=== PATIENT | female | born 1960 | race Caucasian/White ===

== ENCOUNTER → 2017-09-27 | Outpatient (CLI) | payer BC ==
--- NOTE | 2017-10-01 08:19 | MM ---
Reason for exam: screening (asymptomatic). Last mammogram was performed 5 years and 2 months ago. History: Patient is postmenopausal. Physical Findings: A clinical breast exam by your physician is recommended on an annual basis and results should be correlated with mammographic findings. MG Screening Mammo w CAD Bilateral CC and MLO view(s) were taken. Prior study comparison: July 19, 2012, bilateral digital screening mammo w/CAD. The breast tissue is heterogeneously dense. This may lower the sensitivity of mammography. New increased nodule inferior left breast. ASSESSMENT: Incomplete: need additional imaging evaluation, BI-RAD 0 RECOMMENDATION: Special view mammogram of the left breast. If lesion persists on supplemental views, image directed ultrasound is recommended. [facility] will attempt to contact patient to return for supplemental views and ultrasound if indicated.
== END | disposition home or self-care (01) ==
LOC: RADMAMWWP 15:18
PROVIDERS: ATTEND Pediatrics
DX: Z12.31 Encounter for screening mammogram for malignant neoplasm of breast (principal)
CPT/HCPCS: 77067

== ENCOUNTER → 2017-10-14 | Outpatient (CLI) | payer BC ==
--- NOTE | 2017-10-15 07:54 | MM ---
Reason for exam: additional evaluation requested from abnormal screening. Last mammogram was performed 1 month ago. History: Patient is postmenopausal. Benign excisional biopsy of the right breast, 1991. Physical Findings: Nurse did not find any significant physical abnormalities on exam. MG 3D Work Up W/Cad LT Spot compression CC, MLO, and LM view(s) were taken of the left breast. Prior study comparison: September 27, 2017, bilateral MG screening mammo w CAD. July 19, 2012, bilateral digital screening mammo w/CAD. The breast tissue is heterogeneously dense. This may lower the sensitivity of mammography. Finding: There is a 5 mm circumscribed round mass in the lower quadrant, anterior position of the left breast, persists on additional views. These results were verbally communicated with the patient and result sheet given to the patient on 10/14/17. ASSESSMENT: Incomplete: need additional imaging evaluation, BI-RAD 0 RECOMMENDATION: Ultrasound of the left breast.
--- NOTE | 2017-10-15 07:55 | USB ---
Reason for exam: additional evaluation requested from abnormal screening. History: Patient is postmenopausal. Benign excisional biopsy of the right breast, 1991. US Breast Workup Limited LT Left breast ultrasound demonstrates a 0.5 x 0.3 x 0.5cm simple cyst at 6 o'clock. These results were verbally communicated with the patient and result sheet given to the patient on 10/14/17. ASSESSMENT: Benign, BI-RAD 2 RECOMMENDATION: Return to routine screening mammogram schedule for both breasts.
== END | disposition home or self-care (01) ==
LOC: RADMAMWWP 14:31
PROVIDERS: ATTEND Pediatrics
DX: Z12.31 Encounter for screening mammogram for malignant neoplasm of breast (principal); R92.8 Other abnormal and inconclusive findings on diagnostic imaging of breast; R92.2 Inconclusive mammogram
CPT/HCPCS: 77065; 76642; G0279

== ENCOUNTER → 2018-05-13 | Outpatient (CLI) | payer BC ==
--- NOTE | 2018-05-14 11:02 | USB ---
Reason for exam: additional evaluation requested from abnormal screening. History: Patient is postmenopausal. Benign excisional biopsy of the right breast, 1991. Physical Findings: Nurse did not find any significant physical abnormalities on exam. US Breast LT Left complete breast ultrasound includes all four quadrants, the retroareolar region and axilla. Finding demonstrates a 0.5 x 0.3 x 0.6cm cystic lesion at 6 o'clock and a axillary node. These results were verbally communicated with the patient and result sheet given to the patient on 05/13/18. ASSESSMENT: Benign, BI-RAD 2 RECOMMENDATION: Return to routine screening mammogram schedule for both breasts. Back on schedule. Manage patient on a clinical basis.
== END | disposition home or self-care (01) ==
LOC: RADUSWWP 15:36
PROVIDERS: ATTEND Nurse Practitioner Family
DX: N63.20 Unspecified lump in the left breast, unspecified quadrant (principal)

== ENCOUNTER → 2019-03-27 | Outpatient (CLI) | payer BC ==
--- NOTE | 2019-03-30 08:48 | MM ---
Reason for exam: screening (asymptomatic). Last mammogram was performed 1 year and 5 months ago. History: Patient is postmenopausal. Benign excisional biopsy of the right breast, 1991. Physical Findings: A clinical breast exam by your physician is recommended on an annual basis and results should be correlated with mammographic findings. MG Screening Mammo w CAD Bilateral CC and MLO view(s) were taken. Prior study comparison: October 14, 2017, left breast MG 3d work up w/cad LT. September 27, 2017, bilateral MG screening mammo w CAD. The breast tissue is heterogeneously dense. This may lower the sensitivity of mammography. There is chronic nodularity bilaterally. No significant changes when compared with prior studies. ASSESSMENT: Benign, BI-RAD 2 RECOMMENDATION: Routine screening mammogram of both breasts in 1 year.
== END | disposition home or self-care (01) ==
LOC: RADMAMWWP 16:06
PROVIDERS: ATTEND Pediatrics
DX: Z12.31 Encounter for screening mammogram for malignant neoplasm of breast (principal)
CPT/HCPCS: 77067

== ENCOUNTER → 2021-10-12 | Outpatient (CLI) | payer BC ==
--- NOTE | 2021-10-13 11:40 | MM ---
Reason for exam: screening (asymptomatic). Last mammogram was performed 2 years and 6 months ago. History: Patient is postmenopausal. Benign excisional biopsy of the right breast, 1991. Physical Findings: A clinical breast exam by your physician is recommended on an annual basis and results should be correlated with mammographic findings. MG Screening Mammo w CAD Bilateral CC and MLO view(s) were taken. Prior study comparison: March 27, 2019, bilateral MG screening mammo w CAD. October 14, 2017, left breast MG 3d work up w/cad LT. The breast tissue is heterogeneously dense. This may lower the sensitivity of mammography. Finding: There is a typically benign, new 4 mm circumscribed oval mass located 4 cm from the nipple in the lower inner quadrant, middle position of the right breast. There is a chronic nodularity bilaterally. New finding since March 27, 2019 and October 14, 2017. ASSESSMENT: Incomplete: need additional imaging evaluation, BI-RAD 0 RECOMMENDATION: Special view mammogram of the right breast. If lesion persists on supplemental views, image directed ultrasound is recommended. [facility] will attempt to contact patient to return for supplemental views and ultrasound if indicated.
== END | disposition home or self-care (01) ==
LOC: RADMAMWWP 12:56
PROVIDERS: ATTEND Pediatrics
DX: Z12.31 Encounter for screening mammogram for malignant neoplasm of breast (principal)
CPT/HCPCS: 77067

== ENCOUNTER → 2021-10-19 | Outpatient (CLI) | payer BC ==
--- NOTE | 2021-10-19 13:32 | MM ---
Reason for exam: additional evaluation requested from abnormal screening. Last mammogram was performed less than 1 month ago. History: Patient is postmenopausal. Benign excisional biopsy of the right breast, 1991. Physical Findings: Nurse Summary: 0.5cm nodule in the right breast at 1 o'clock (nurse ms). MG 3D Work Up W/Cad RT Spot compression CC, spot compression LM, and LM view(s) were taken of the right breast. Prior study comparison: October 12, 2021, bilateral MG screening mammo w CAD. March 27, 2019, bilateral MG screening mammo w CAD. The breast tissue is heterogeneously dense. This may lower the sensitivity of mammography. Central distortion becomes much more apparent on spot 3D CC. Likely excisonal scar. Low density nodularity lower inner quadrant becomes less defined and not seen on 3D lateral. These results were verbally communicated with the patient and result sheet given to the patient on 10/19/21. ASSESSMENT: Incomplete: need additional imaging evaluation, BI-RAD 0 RECOMMENDATION: Ultrasound of the right breast.
--- NOTE | 2021-10-19 13:35 | USB ---
Reason for exam: additional evaluation requested from abnormal screening. History: Patient is postmenopausal. Benign excisional biopsy of the right breast, 1991. US Breast Workup Limited RT Right limited breast ultrasound including focal area of concern, retroareolar and axilla demonstrates a 0.4 x 0.6 x 0.2cm oval, complex cystic cluster at 4 o'clock, probable mammographic correlate, 6 month follow up mammogram and a 0.5 x 0.4 x 0.3cm oval, hyperechoic lesion at 4 o'clock, suggestive of a small lipoma. No abnormality at the nurse palpated 12-1 o'clock position. Right breast 12-6 o'clock scanned. These results were verbally communicated with the patient and result sheet given to the patient on 10/19/21. ASSESSMENT: Probably benign, BI-RAD 3 RECOMMENDATION: Follow-up diagnostic mammogram of the right breast in 6 months. Manage on a clinical basis with regard to any suspicious palpable area.
== END | disposition home or self-care (01) ==
LOC: RADMAMWWP 10:53
PROVIDERS: ATTEND Pediatrics
DX: R92.8 Other abnormal and inconclusive findings on diagnostic imaging of breast (principal)
CPT/HCPCS: 77061; 77065

== ENCOUNTER → 2022-04-18 | Outpatient (CLI) | payer BC ==
--- NOTE | 2022-04-18 14:01 | MM ---
Reason for Exam: Follow-up at short interval from prior study. Last screening mammogram was performed 7 month(s) ago. Patient History: Menarche at age 11. First Full-Term at age 24. Postmenopausal. 1991, Benign Excisional Biopsy on the right side. Risk Values: Bonny 5 year model risk: 2.1%. NCI Lifetime model risk: 8.7%. Prior Study Comparison: 04/06/2002 Screening Mammogram, [facility]. 06/16/2004 Screening Mammogram, [facility]. 08/05/2009 Bilateral Screening Mammogram, [facility]. 07/19/2012 Bilateral Screening Mammogram, [facility]. 09/27/2017 Bilateral Screening Mammogram, [facility]. 10/14/2017 Left Diagnostic Mammogram, [facility]. 10/14/2017 Left Diagnostic Ultrasound, [facility]. 05/13/2018 Left Diagnostic Ultrasound, [facility]. 03/27/2019 Bilateral Screening Mammogram, [facility]. 10/12/2021 Bilateral Screening Mammogram, [facility]. 10/19/2021 Right Diagnostic Mammogram, [facility]. 10/19/2021 Right Diagnostic Ultrasound, [facility]. Tissue Density: The breast tissue is heterogeneously dense. This may lower the sensitivity of mammography. Findings: Analyzed By CAD. The previous medial low density nodularity is no longer identified. Questionable distortion central superior right breast incompletely disperses on additional views. Further ultrasound evaluation recommended. Overall Assessment: Incomplete: need additional imaging evaluation, BI-RAD 0 Management: Diagnostic Breast Ultrasound of the right breast. Subareolar, periareolar, and 11-1 o'clock. Electronically signed and approved by: Kerri Palacio M.D. Radiologist
== END | disposition home or self-care (01) ==
LOC: RADMAMWWP 13:09
PROVIDERS: ATTEND Internal Medicine
DX: R92.8 Other abnormal and inconclusive findings on diagnostic imaging of breast (principal)
CPT/HCPCS: 77061; 77065